=== PATIENT | female | born 1985 | race Caucasian/White ===

== ENCOUNTER 2019-03-01 01:43 | Emergency (ER) | payer OTHER ==
[~2019-03-01] VITALS: Ht 170.2 cm; Wt 83.2 kg
[~2019-03-01 01:43] MED LIST: IBUP-1542 PO
[2019-03-01 01:48] VITALS: BP 135/87; PULSE 83; RESP 16; Ht 170.2 cm; Wt 83.2 kg
[2019-03-01] MEDS ORDERED: IBUPROFEN 600 MG TAB PO ONE (05:00)
== END 2019-03-01 05:53 | disposition home or self-care (01) ==
LOC: FTE 01:43
DX: S69.91XA Unspecified injury of right wrist, hand and finger(s), initial encounter (principal); W22.8XXA Striking against or struck by other objects, initial encounter; Y92.89 Other specified places as the place of occurrence of the external cause
CPT/HCPCS: 29125; 73110; Z7502; Z7610